=== PATIENT | male | born 1970 | race Caucasian/White ===

== ENCOUNTER 2020-04-09 18:10 | Emergency (ER) | payer OTHER, SELFPAY ==
--- NOTE | ~2020-04-09 | CT_ITS ---
EXAMINATION: CT abdomen pelvis wo con DATE: 04/09/2020 19:32 INDICATION: Right flank, low back pain TECHNIQUE: Computed tomography (CT) of the abdomen and pelvis was performed without intravenous contr ast. Automated exposure control and iterative reconstruction technique were employed. Exam dose: 716 .27 mGy-cm total exam DLP. COMPARISON: 07/29/[address] abdomen pelvis FINDINGS: Normal heart size. No pericardial or pleural effusion. The lung bases are clear. The liver, gallbladder, bile ducts, spleen, pancreas, pancreatic duct are unremarkable. The adrenal g lands are unremarkable. No urinary tract calculus or hydroureteronephrosis. Probable lower pole approximate 1.2 mm parapelvic right renal cyst. Probable upper pole left renal 9 mm parapelvic cyst. No other renal mass lesion is evident on this limited noncontrast examination. There is minimal abdominal aortic calcification. No abdominal aortic aneurysm. No intraperitoneal or retroperitoneal or pelvic mass lesion or adenopathy or ascites. Normal appendix. No bowel obstruction, bowel wall thickening, pneumatosis, diverticulitis or intraper itoneal free air. Mild prominence of the prostate gland. The urinary bladder is unremarkable. Small fat-containing umbilical hernia. No suspicious osteolytic or osteoblastic lesions. IMPRESSION: No urinary tract calculus or hydroureteronephrosis Probable parapelvic renal cysts Reviewed, dictated and finalized at [facility]. Reviewed, dictated and finalized at location [facility]. APPLICATIONS ADMINISTRATOR
[2020-04-09 18:20] VITALS: BP 131/84; PULSE 103; RESP 16; TEMP 36.2; O2SAT 99
[2020-04-09 19:22] LABS: Basophils Absolute Auto 0.1 K/mm3 (0.0-0.1); Basophils Percent Auto 0.5 % (0.2-1.2); Eosinophils Absolute Auto 0.2 K/mm3 (0-0.3); Eosinophils Percent Auto 1.8 % (0-4.4); Hemoglobin 15.8 g/dL (14.0-18.0); Immature Granulocyte Absolute 0.06 K/mm3 (0.00-0.031); Immature Granulocyte Percent A 0.5 % (0-0.5); Lymphocytes Absolute Auto 3.62 K/mm3 (0.9-3.2); Lymphocytes Percent Auto 27.2 % (18.3-44.2); Mean Corpuscular HGB Conc 34.3 g/dl (32-36); Mean Corpuscular Hemoglobin 32.3 pg (26-34); Mean Corpuscular Volume 94.1 fl (80-100); Mean Platelet Volume 11.8 fl (7.4-10.4); Monocytes Absolute Auto 1.2 K/mm3 (0.1-0.6); Monocytes Percent Auto 9.2 % (2.6-8.5); Neutrophils Absolute Auto 8.1 K/mm3 (1.3-6.7); Neutrophils Percent Auto 60.8 % (45.5-73.1); Platelet Count Result 205 k/mm3 (150-375); Red Blood Count 4.89 M/mm3 (4.6-6.20); Red Cell Distribution Width 12.4 % (11.5-14.5); White Blood Count 13.3 K/mm3 (4.5-10.0)
[2020-04-09 19:25] LABS: Add Urine Microscopic? YES; Appearance Urine Clear (Clear); Bilirubin Urine Negative (Negative); Blood Urine 2+ (Negative); Color Urine Straw (Yellow); Glucose Urine UA Negative (Negative); Ketones Urine Negative (Negative); Leukocyte Esterase Ur Negative LEU/UL (Negative); Nitrate Urine Negative (Negative); Protein Urine 1+ mg/dL (Negative); RBC Urine 0-2 /hpf (0-2); Specific Grav Ur 1.005 (1.001-1.035); Urobilinogen Urine Negative mg/dL (<2.0); WBC Urine 0-3 /hpf
[2020-04-09 19:33] LABS: Anion Gap 8 mmol/L (8-16); Blood Urea Nitrogen 8 mg/dL (9-20); Calcium 8.7 mg/dL (8.4-10.2); Carbon Dioxide 25 mmol/L (22-30); Chloride 100 mmol/L (98-107); Estimated CRCL calculation 119 ml/min; Estimated Glomerular Filt Rate > 60; Glucose 101 mg/dL (75-110); Potassium 4.4 mmol/L (3.4-5.0); Sodium 133 mmol/L (137-145)
[2020-04-09] MEDS: KETOROLAC 30 MG/ML VIAL (*BKC) IV PUSH (19:56)
[2020-04-09] MEDS: methocarbamoL 750 MG TABLET PO (20:29)
--- NOTE | 2020-04-09 20:45 | ED.BACK ---
HPI - Back Pain/Injury General Chief Complaint: Back Pain/Injury Stated Complaint: flank pain Time Seen by Provider: 04/09/20 18:43 Source: patient Mode of arrival: ambulatory Limitations: no limitations History of Present Illness HPI Narrative: 49-year-old male Complains of acute onset sudden sharp severe right low back and flank pain while he was watching TV Has not radiated, but has not improved very much either He had trouble finding a comfortable position and was nauseated but did not vomit He denies any urinary symptoms He denies any history of a back injury or prior back problem, has no numbness or weakness or pain radiating into his leg Related Data Home Medications Medication Instructions Recorded Confirmed [id number]-[id number]-mstbus tablet 1 tablet PO DAILY 10/12/19 10/12/19 Allergies Allergy/AdvReac Type Severity Reaction Status Date / Time bee pollen Allergy Severe Other Verified 04/09/20 18:46 Penicillins Allergy Unknown HIVES Verified 04/09/20 18:46 Review of Systems Review of Systems: All systems reviewed & are unremarkable except as noted in HPI and below Constitutional: Constitutional: Denies chills, Denies fatigue, Denies fever(s), Denies headache(s) and Denies weakness Eyes: Eyes: Reports no additional eye complaints and Denies change in vision ENT: Denies headache(s), Denies epistaxis, Denies nasal congestion and Denies sore throat Cardiovascular: Cardiovascular: Denies chest pain, Denies leg edema, Denies palpitations and Denies dyspnea Respiratory: Respiratory: Denies cough, Denies dyspnea and Denies wheezing Gastrointestinal: Gastrointestinal: Reports abdominal pain, Denies diarrhea, Denies nausea and Denies vomiting Genitourinary: Genitourinary: Denies hematuria, Denies dysuria and Denies urinary frequency Musculoskeletal: Musculoskeletal: Reports back pain, Denies deformity, Denies arthralgias, Denies joint swelling, Denies muscle weakness and Denies numbness Integumentary/Breasts: Skin/Breast: Denies rash and Denies wounds Neurologic: Denies headache(s), Denies focal weakness, Denies numbness and Denies weakness Psychiatric: Psychiatric: Reports no additional psychiatric complaints Endocrine: Endocrine: Denies fatigue and Denies palpitations Hematologic/Lymphatic: Hematologic/Lymphatic: Denies easy bleeding and Denies easy bruising Allergic/Immunologic: Allergic/Immunologic: Denies wheezing PMFSH Family History Family History Mother Family history of transient ischemic attacks Sibling Family history of malignant neoplasm Social History Social History Smoking status: Current every day smoker (Smoke 3/4 ppd) Alcohol intake: current Exam Const: General: well developed and awake Nutritional Appearance: well nourished Orientation/consciousness: patient oriented x3 (alert) Limitations: no limitations Other: Mild distress secondary to discomfort HENMT: Head: normocephalic and atraumatic Ears: external ears normal General nose exam: No nasal discharge present and no epistaxis Face and sinus: face symmetric Eyes: Conjunctivae: conjunctivae normal Sclera: sclerae normal EOM: EOMs intact bilaterally Neck: Neck: normal visual inspection, supple and no JVD Chest: Chest palpation & inspection: deferred Resp: Effort & Inspection: normal respiratory effort Auscultation: clear to auscultation bilaterally, no rales, no rhonchi, no wheezes and other (BS =) Cardio: Rate: regular rate Rhythm: regular rhythm Heart sounds: no gallops and no murmurs GI: Inspection: normal to inspection and non-distended GI Palp: Yes Soft to palpation and No Tenderness to palpation present (GI) Other: Mildly tender on the right flank, no guarding no rebound : General: Yes CVA tenderness Other: Questionable CVA tenderness on the right side none on the left side B
[2020-04-09 21:06] LABS: Alanine Aminotransferase 21 U/L (4-50); Albumin Level 4.2 g/dL (3.5-5.1); Alkaline Phosphatase 46 U/L (38-126); Aspartate Amino Transferase 39 U/L (17-59); Bilirubin,Total 0.5 mg/dL (0.2-1.3); Lipase 264 U/L (23-300)
== END 2020-04-09 21:26 | disposition home or self-care (01) ==
PROVIDERS: Emergency Provider Emergency Medicine; Family Provider Internal Medicine; PCP Family Medicine
DX: M54.16 Radiculopathy, lumbar region (principal); F17.210 Nicotine dependence, cigarettes, uncomplicated
CPT/HCPCS: 36415; 74176; 80048; 80076; 81001; 83690; 85025; 96374; 99284; A9270; J1885

== ENCOUNTER 2020-04-27 02:03 | Emergency (ER) | payer OTHER, SELFPAY ==
[2020-04-27 02:05] VITALS: BP 133/88; PULSE 72; RESP 18; TEMP 36.1; O2SAT 100
--- NOTE | 2020-04-27 02:15 | ED_ITS ---
HPI - General Adult General Chief complaint: Animal Bite Stated complaint: right hand lac from dogbite Time Seen by Provider: 04/27/20 02:11 History of Present Illness HPI narrative: Patient is a 49-year-old gentleman who presents the emergency department with chief complaint of dog bite to right hand. Patient states that his pet dog bit him on the right hand after the dog got upset. Is a known animal vaccinated patient is unsure of his last tetanus shot. Patient states the bleeding is controlled states he trimmed some fat out of the wound on the dorsum of the right forearm. Patient states there is a cut on the dorsal aspect of the right forearm just superior to the wrist and there is a puncture wound in the webspace between the ring and little finger. Related Data Home Medications Medication Instructions Recorded Confirmed No Home Medications 04/27/20 04/27/20 Allergies Allergy/AdvReac Type Severity Reaction Status Date / Time bee pollen Allergy Severe Other Verified 04/09/20 18:46 Penicillins Allergy Unknown HIVES Verified 04/09/20 18:46 Review of Systems Review of Systems: Narrative: A 10 system review of systems was completed on the patient and is negative except for what is stated in the HPI. Nursing and ancillary documentation was reviewed. [facility] Family History Family History Mother Family history of transient ischemic attacks Sibling Family history of malignant neoplasm Social History Social History Smoking status: Current every day smoker (Smoke 3/4 ppd) Alcohol intake: current Comments Patient has history of anxiety and PTSD Exam Narrative: Exam Narrative: GENERAL: Well-appearing, well-nourished, and in no acute distress. HEAD: Normocephalic, atraumatic. EYES: PERRLA and EOMI. ENT: Nares clear, no rhinorrhea or epistaxis. Mucous membranes moist. NECK: Supple. CHEST: Clear to auscultation. No respiratory distress. HEART: Regular rate and rhythm. No murmur heard. Normal peripheral pulses. ABDOMEN: Soft, nontender, nondistended, normal active bowel sounds. EXTREMITIES: Normal range of motion. No edema. There is a 3 cm laceration to the dorsum of the right forearm, there is 1/2 cm puncture wound between the ring and little finger of the right hand SKIN: Warm, dry, no rash. NEURO: No focal deficits. Alert and oriented x3. PSYCH: Normal mood and affect. Course Course Emergency Course: Given that this is an animal bite it was discussed with the patient the risk of closure increases the risk of infection. The wound will be Steri-Stripped and the patient will be given clindamycin and a updated tetanus shot will be given to the patient. Discharge Plan Discharge Clinical Impression: Dog bite Qualifiers: Encounter type: initial encounter Qualified Code(s): W54.0XXA - Bitten by dog, initial encounter Patient Disposition: Home, Self-Care Condition: Stable Instructions: Antibiotic Form, Animal Bite (ED), Steristrips (ED) Prescriptions: New doxycycline hyclate 100 mg tablet 100 mg PO DAILY Qty: 14 RF: 0 No Action No Home Medications RF: 0 Follow-up/Referrals: Yael Odonnell DO [Primary Care Provider] - Time of Disposition: 02:21
[2020-04-27] MEDS: TETANUS,DIPHTHERIA,AC PERTUSSIS ADULT (0.5 ML) BOOSTRIX IM (02:32)
[2020-04-27] MEDS: DOXYCYCLINE HYCLATE 100 MG TABLET PO (02:34)
== END 2020-04-27 02:45 | disposition home or self-care (01) ==
LOC: ANHED 02:38
PROVIDERS: Emergency Provider Emergency Medicine; PCP Family Medicine
DX: S61.451A Open bite of right hand, initial encounter (principal); Z23 Encounter for immunization; F17.210 Nicotine dependence, cigarettes, uncomplicated; W54.0XXA Bitten by dog, initial encounter
CPT/HCPCS: 90471; 90715; 99283; A9270

== ENCOUNTER 2020-09-08 23:59 | Emergency (ER) | payer OTHER, SELFPAY ==
--- NOTE | ~2020-09-08 | CT_ITS ---
EXAMINATION: CT cervical spine wo con DATE: 09/09/2020 00:56 INDICATION: Neck pain. TECHNIQUE: Computed tomography (CT) of the cervical spine was performed without intravenous contrast. Automated exposure control and iterative reconstruction technique were employed. The dose-length pro duct was 443.05 mGy-cm. COMPARISON: None FINDINGS: Bone alignment is normal. Vertebral body heights are normal. There is mildly decreased disc height at C5-C6. The following disc levels are specifically discussed: C2-C3: There is mild bilateral uncovertebral joint osteoarthritis. There is moderate bilateral facet joint osteoarthritis. There is no neural foraminal stenosis. There is no central canal stenosis. C3-C4: There is mild bilateral uncovertebral joint osteoarthritis. There is moderate right and severe left facet joint osteoarthritis. There is moderate left neural foraminal stenosis. There is no centr al canal stenosis. C4-C5: There is mild right uncovertebral joint osteoarthritis. There is mild right and severe left fa cet joint osteoarthritis. There is mild left neural foraminal stenosis. There is no central canal waylon nosis. C5-C6: There is severe right and mild left uncovertebral joint osteoarthritis. There is mild bilatera l facet joint osteoarthritis. There is mild right neural foraminal stenosis. There is mild central ca nal stenosis. C6-C7: There is no uncovertebral joint osteoarthritis. There is moderate left facet joint osteoarthri tis. There is no neural foraminal stenosis. There is no central canal stenosis. C7-T1: There is no uncovertebral joint osteoarthritis. There is severe bilateral facet joint osteoart hritis. There is no neural foraminal stenosis. There is no central canal stenosis. IMPRESSION: 1. Mild cervical spondylosis. Reviewed, dictated and finalized at location [facility].
--- NOTE | ~2020-09-08 | XR_ITS ---
EXAMINATION: XR chest 2V DATE: 09/09/2020 00:26 INDICATION: Right-sided chest pain. TECHNIQUE: PA and lateral views of the chest were obtained. COMPARISON: Chest radiograph dated 01/01/2019 FINDINGS: The lungs remain clear with no focal airspace opacities, pulmonary edema, pleural effusion or pneumot horax. The cardiomediastinal silhouette is normal. Visualized bones and soft tissues are unremarkable . IMPRESSION: 1. No acute cardiopulmonary disease. Reviewed, dictated and finalized at location [facility].
[2020-09-09] VITALS (10 sets, daily range): BP systolic 111–131; BP diastolic 71–88; PULSE 78–94; RESP 13–22; O2SAT 95–99
--- NOTE | 2020-09-09 00:03 | ECG_ITS ---
Measurements Intervals [place] Rate: 78 P: 52 [place]: 168 QRS: 53 QRSD: 93 T: 63 QT: 358 QTc: 408 Interpretive Statements SINUS RHYTHM BASELINE ARTIFACT- I, II, III, AVR, AVF, V1-V6 NORMAL ECG Electronically Signed On 09-09-2020 7:57:31 CDT by Ke Mae D.O.
[2020-09-09 00:23] LABS: Basophils Absolute Auto 0.1 K/mm3 (0.0-0.1); Basophils Percent Auto 0.5 % (0.2-1.2); Eosinophils Absolute Auto 0.2 K/mm3 (0-0.3); Eosinophils Percent Auto 1.9 % (0-4.4); Hematocrit 44.3 % (42.0-52.0); Hemoglobin 15.2 g/dL (14.0-18.0); Immature Granulocyte Absolute 0.03 K/mm3 (0.00-0.031); Immature Granulocyte Percent A 0.3 % (0-0.5); Lymphocytes Absolute Auto 4.67 K/mm3 (0.9-3.2); Lymphocytes Percent Auto 45.3 % (18.3-44.2); Mean Corpuscular HGB Conc 34.3 g/dl (32-36); Mean Corpuscular Hemoglobin 30.6 pg (26-34); Mean Corpuscular Volume 89.3 fl (80-100); Mean Platelet Volume 11.3 fl (7.4-10.4); Monocytes Percent Auto 9.9 % (2.6-8.5); Neutrophils Absolute Auto 4.4 K/mm3 (1.3-6.7); Neutrophils Percent Auto 42.1 % (45.5-73.1); Platelet Count Result 224 k/mm3 (150-375); Red Blood Count 4.96 M/mm3 (4.6-6.20); Red Cell Distribution Width 13.2 % (11.5-14.5); White Blood Count 10.3 K/mm3 (4.5-10.0)
--- NOTE | 2020-09-09 00:24 | ED.CHESTPAIN ---
HPI - Chest Pain General Chief Complaint: Chest Pain Stated Complaint: chest pain, right arm pain Time Seen by Provider: 09/09/20 00:13 History of Present Illness HPI narrative: Pain in the right side of the neck radiating throughout the right arm and hand. Feels like his hand is asleep. Improves somewhat with shaking his hand. Neck feels stiff and pain worsens with head turning. He has never had this before. He has chronic back issues. Related Data Allergies Allergy/AdvReac Type Severity Reaction Status Date / Time bee pollen Allergy Severe Other Verified 09/09/20 00:07 Penicillins Allergy Unknown HIVES Verified 09/09/20 00:07 Review of Systems Review of Systems: All systems reviewed & are unremarkable except as noted in HPI and below Constitutional: Constitutional: Denies chills and Denies fever(s) ENT: Reports system reviewed and no additional complaints, except as documented Cardiovascular: Cardiovascular: Reports as per HPI Respiratory: Respiratory: Denies dyspnea Gastrointestinal: Gastrointestinal: Reports no additional gastrointestinal complaints Neurologic: Reports as per HPI [facility] Family History Family History Mother Family history of transient ischemic attacks Sibling Family history of malignant neoplasm Social History Social History Tobacco type: cigarettes Alcohol intake: current Gender identity (if verbalized by the patient): Male Exam Const: General: no acute distress and alert Orientation/consciousness: patient oriented x3 HENMT: Head: normal to inspection Neck: Neck: normal visual inspection and no lymphadenopathy Chest: Chest palpation & inspection: tenderness clavicle on the right Resp: Effort & Inspection: normal respiratory effort Auscultation: clear to auscultation bilaterally Cardio: Rate: regular rate Rhythm: regular rhythm GI: GI Palp: Yes Soft to palpation and No Tenderness to palpation present (GI) Back/Spine/Pelvis: Other: tenderness and increased tone in right paraspinal muscles Skin: General skin exam: normal color Neuro: General: patient oriented x3, moves all extremities, no focal motor deficits and CN's II-XI intact bilaterally Speech: normal speech Other: normal strength Extrem: General: normal to inspection Course Vital Signs Vital signs: Vital Signs Pulse Rate 84 09/09/20 00:03 Respiratory Rate 22 H 09/09/20 00:03 Blood Pressure 131/83 06/28/21 00:03 Pulse Oximetry 95 09/09/20 00:03 Pulse Rate 89 09/09/20 02:45 Respiratory Rate 18 09/09/20 02:45 Blood Pressure 119/88 09/09/20 02:45 Pulse Oximetry 98 09/09/20 02:45 MDM - Chest Pain MDM Narrative Medical decision making narrative: Pain seems to orianginate from the neck. Likely pinch nerve. Medical Records Data Attestation: I reviewed the patient's medical records. Lab Data Attestation: I reviewed the patient's lab results. Result diagrams: 09/09/20 00:13 09/09/20 00:13 Labs: Lab Results 09/09/20 09/09/20 09/09/20 Range/Units 00:13 00:13 00:13 WBC 10.3 H (4.5-10.0) K/mm3 RBC 4.96 (4.6-6.20) M/mm3 Hgb 15.2 (14.0-18.0) g/dL Hct 44.3 (42.0-52.0) % MCV 89.3 (80-100) fl MCH 30.6 (26-34) pg MCHC 34.3 (32-36) g/dl RDW 13.2 (11.5-14.5) % Plt Count 224 (150-375) k/mm3 MPV 11.3 H (7.4-10.4) fl Immature Gran % (Auto) 0.3 (0-0.5) % Neut % (Auto) 42.1 L (45.5-73.1) % Lymph % (Auto) 45.3 H (18.3-44.2) % [place] % (Auto) 9.9 H (2.6-8.5) % Eos % (Auto) 1.9 (0-4.4) % Baso % (Auto) 0.5 (0.2-1.2) % Lymph # (Auto) 4.67 H (0.9-3.2) K/mm3 [place] # (Auto) 1.0 H (0.1-0.6) K/mm3 Eos # (Auto) 0.2 (0-0.3) K/mm3 Baso # (Auto) 0.1 (0.0-0.1) K/mm3 Abs Immat Gran (auto) 0.03 (0.00-0.031) K/mm3 Absolute Neuts (auto) 4.4 (1.3-6.7) K/m
[2020-09-09 00:31] LABS: INR 0.9; Prothrombin Time 12.8 Seconds (11.1-14.7)
[2020-09-09 00:32] LABS: Partial Thromboplastin Time 26.1 SECONDS (22.3-36.8)
[2020-09-09 00:37] LABS: Anion Gap 15 mmol/L (8-16); Blood Urea Nitrogen 6 mg/dL (9-20); Calcium 9.4 mg/dL (8.4-10.2); Carbon Dioxide 22 mmol/L (22-30); Chloride 100 mmol/L (98-107); Estimated CRCL calculation 101 ml/min; Estimated Glomerular Filt Rate > 60; Glucose 85 mg/dL (75-110); Potassium 4.1 mmol/L (3.4-5.0); Sodium 137 mmol/L (137-145)
[2020-09-09] MEDS: ASPIRIN 81 MG CHEWABLE TABLET 324 MG PO (00:46)
[2020-09-09 00:49] LABS: Troponin I < 0.012 ng/mL (0.000-0.034)
[2020-09-09] MEDS: DEXAMETHASONE SOD PHOS INJ 4 MG/ML VIAL 10 MG IV PUSH (02:45)
== END 2020-09-09 02:46 | disposition home or self-care (01) ==
PROVIDERS: Emergency Provider Emergency Medicine; PCP Family Medicine
DX: M54.12 Radiculopathy, cervical region (principal); F17.210 Nicotine dependence, cigarettes, uncomplicated; M79.601 Pain in right arm
CPT/HCPCS: 36415; 71046; 72125; 80048; 84484; 85025; 85610; 85730; 93005; 96374; 99284; A9270; J1100

== ENCOUNTER 2020-11-12 01:40 | Emergency (ER) | payer OTHER, SELFPAY ==
[2020-11-12 01:48] VITALS: BP 126/88; PULSE 94; RESP 20; TEMP 36.3; O2SAT 97
--- NOTE | 2020-11-12 02:25 | ED.SKABFB ---
HPI - Skin/Abscess/Foreign Bdy General Chief complaint: Skin/Abscess/Foreign Body Stated complaint: possible spider bite Time Seen by Provider: 11/12/20 02:13 History of Present Illness HPI narrative: Patient is a 50-year-old male who presents ER with redness to the right elbow medially. Noticed it 1 hour prior to arrival. It is itchy and uncomfortable. Unsure if he was bit by a spider. Did not actually see himself get bitten by any insects. No fevers or chills or sweats. There is redness that starting to extend up the arm. Related Data Allergies Allergy/AdvReac Type Severity Reaction Status Date / Time bee pollen Allergy Severe Other Verified 09/09/20 00:07 Penicillins Allergy Unknown HIVES Verified 09/09/20 00:07 Review of Systems Constitutional: Constitutional: Denies chills, Denies fever(s) and Denies weakness Integumentary/Breasts: Skin/Breast: Reports pruritus, Reports erythema and Denies skin ulcer Neurologic: Denies focal weakness and Reports numbness (Chronic right hand) PMFSH Past Medical History Medical History (Updated 11/12/20 @ 02:30 by Umang Wyman MD) Anxiety PTSD (post-traumatic stress disorder) Surgical History Surgical History (Updated 11/12/20 @ 02:30 by Umang Wyman MD) No pertinent past surgical history Family History Family History Mother Family history of transient ischemic attacks Sibling Family history of malignant neoplasm Social History Social History Tobacco type: cigarettes Alcohol intake: current Gender identity (if verbalized by the patient): Male Exam Narrative: GENERAL: Well-appearing, well-nourished, and in no acute distress. HEAD: Normocephalic, atraumatic. CHEST: Clear to auscultation. No respiratory distress. HEART: Regular rate and rhythm. Normal peripheral pulses. EXTREMITIES: Normal range of motion. No edema. SKIN: Warm, dry, cellulitis medial right elbow with central nodule w/o fluctuance. NEURO: Alert and oriented x3. PSYCH: Normal mood and affect. Course Vital Signs Vital signs: Vital Signs Temperature 97.3 F L 11/12/20 01:48 Pulse Rate 94 11/12/20 01:48 Respiratory Rate 20 11/12/20 01:48 Blood Pressure 126/88 11/12/20 01:48 Pulse Oximetry 97 11/12/20 01:48 Temperature 97.3 F L 11/12/20 01:48 Pulse Rate 94 11/12/20 01:48 Respiratory Rate 20 11/12/20 01:48 Blood Pressure 126/88 11/12/20 01:48 Pulse Oximetry 97 11/12/20 01:48 Discharge Plan Discharge Clinical Impression: Cellulitis Patient Disposition: Home, Self-Care Condition: Stable Instructions: Antibiotic Form Additional Instructions: Return to the ER if you have fever over 101F, you cannot use your arm, you have pus draining from the area, or you have other concerns. Prescriptions: New doxycycline monohydrate 100 mg tablet 100 mg PO BID Qty: 14 RF: 0 No Action doxycycline hyclate 100 mg tablet 100 mg PO DAILY Qty: 14 RF: 0 methylprednisolone [Medrol (Fox)] 4 mg tablets,dose pack See Rx Instructions .ROUTE .COMPLEX Qty: 21 RF: 0 cyclobenzaprine 10 mg tablet 10 mg PO TID PRN (Reason: muscle spasm) Qty: 20 RF: 0 Follow-up/Referrals: Yael Odonnell DO [Primary Care Provider] - 1 Week
== END 2020-11-12 02:40 | disposition home or self-care (01) ==
LOC: ANHED 02:42
PROVIDERS: Emergency Provider Emergency Medicine; PCP Family Medicine
DX: L03.113 Cellulitis of right upper limb (principal); F41.9 Anxiety disorder, unspecified; F43.10 Post-traumatic stress disorder, unspecified; F17.210 Nicotine dependence, cigarettes, uncomplicated
CPT/HCPCS: 99283

== ENCOUNTER 2021-09-23 00:13 | Day surgery (SDC) | payer OTHER, SELFPAY ==
[2021-09-03 09:14] VITALS: BMI 28.5
--- NOTE | 2021-09-22 13:14 | P.PNAN_ITS ---
Anes - Initial Pre Proc Eval Procedure: Operation Date: 09/23/21 09:15 Proposed Procedures p Screening Colonoscopy - Carloz Jorgensen MD Date/Time: 09/22/21 13:14 Surgeon: Carloz Jorgensen MD Pre Op Diagnosis: neoplasm screening Patient Data Age: 51 Gender: M Height: 1.83 m Weight: 95.4 kg Allergies Allergy/AdvReac Type Severity Reaction Status Date / Time bee pollen Allergy Severe Other Verified 09/23/21 08:00 Penicillins Allergy Unknown HIVES Verified 09/23/21 08:00 Home Medications Medication Instructions Recorded Confirmed Type hydroxyzine HCl 25 mg tablet 25 mg PO TID PRN Anxiety 07/04/21 09/03/21 History sertraline 50 mg tablet (Zoloft) 50 mg PO DAILY #30 tabs 07/04/21 09/03/21 Rx sodium sul 1.479 gram-potas ch See Rx Instructions PO PER PKG DIR 07/23/21 09/03/21 Rx 0.188 gram-magnes sul 0.225 gram #24 tabs tablet (Sutab) Patient hx anesthesia problems: none Family hx anesthesia problems: none Results Review: All pre-operative results and documents have been reviewed as part of the pre- operative evaluation. [facility] Past Medical History Medical History (Updated 09/22/21 @ 13:14 by Efrain Willoughby MD) Anxiety Hematuria Hyperlipemia Nicotine dependence PTSD (post-traumatic stress disorder) Surgical History Surgical History No pertinent past surgical history Family History Family History Mother Family history of transient ischemic attacks Sibling Family history of malignant neoplasm Social History Social History (Updated 07/04/21 @ 13:49 by TIARA Stuart) Smoking packs per day: 0.75 Smoking cigarettes per day: 15.0 Years smoked: 38 Smoking pack-years: 28.50 Smoking status: Current every day smoker Tobacco type: cigarettes Smokeless tobacco user: chewing tobacco Alcohol intake: current Drinks per week: 30 Substance use: never Substance use type: does not use Living arrangements: with friend(s) Additional living arrangements comments: lives with fiance Gender identity (if verbalized by the patient): Male Spiritual care concerns: No Anes - Eval Final PreProcedure Day of Procedure 09/22/21 13:14 Patient weight: overweight Heart: regular rate and rhythm Lungs: clear to auscultation and normal air movement Airway: Mallampati scale class II Neurological: alert and oriented Last oral intake: >/= 8 hours ASA classification: II Emergent: no Anesthetic plan: proceed Anesthesia type and monitoring: general GIVS Results Review: All pre-operative results and documents have been reviewed as part of the pre- operative evaluation. Informed Consent: The patient's anesthetic plan and its attendant risks and benefits were discussed with the patient/family/POA. Questions were solicited and answers provided to the satisfaction of the patient/family/POA.
[2021-09-23 08:01] VITALS: BP 125/80; PULSE 64; RESP 18; TEMP 36.2; O2SAT 100; BMI 27.3
[2021-09-23] MEDS: LACTATED RINGERS 1,000 ML 150 ML IV CONT (08:14)
--- NOTE | 2021-09-23 09:46 | PM.HPGS ---
History of Present Illness History of Present Illness Consent: Risks, benefits, and alternatives have been discussed and questions answered. Patient agrees to proceed with procedure. Chief complaint: neoplasm screening Narrative: Isaias Patel Sr. is a 51 year old male here for first screening colonoscopy Review of Systems Constitutional: Constitutional: Denies headache(s) and Denies weakness Eyes: Eyes: Denies blurry vision ENT: Reports Normal hearing present, Denies headache(s) and Denies neck pain Cardiovascular: Cardiovascular: Denies chest pain and Denies dyspnea Respiratory: Respiratory: Denies dyspnea Gastrointestinal: Gastrointestinal: Reports no additional gastrointestinal complaints Genitourinary: Genitourinary: Denies dysuria Musculoskeletal: Musculoskeletal: Denies neck pain Integumentary/Breasts: Skin/Breast: Denies dry skin Neurologic: Reports Normal hearing present, Denies headache(s) and Denies weakness Psychiatric: Psychiatric: Denies anxiety Endocrine: Endocrine: Denies change in body appearance Hematologic/Lymphatic: Hematologic/Lymphatic: Denies easy bleeding Allergic/Immunologic: Allergic/Immunologic: Denies urticaria PMFSH Past Medical History Medical History (Updated 09/23/21 @ 09:47 by Carloz Jorgensen MD) Anxiety Colon cancer screening Hematuria Hyperlipemia Nicotine dependence PTSD (post-traumatic stress disorder) Surgical History Surgical History No pertinent past surgical history Family History Family History Mother Family history of transient ischemic attacks Sibling Family history of malignant neoplasm Social History Social History (Updated 07/04/21 @ 13:49 by TIARA Stuart) Smoking packs per day: 0.75 Smoking cigarettes per day: 15.0 Years smoked: 38 Smoking pack-years: 28.50 Smoking status: Current every day smoker Tobacco type: cigarettes Smokeless tobacco user: chewing tobacco Alcohol intake: current Drinks per week: 30 Substance use: never Substance use type: does not use Living arrangements: with friend(s) Additional living arrangements comments: lives with fiance Gender identity (if verbalized by the patient): Male Spiritual care concerns: No Meds Home Medications and Allergies Home Medications Medication Instructions Recorded Confirmed Type hydroxyzine HCl 25 mg tablet 25 mg PO TID PRN Anxiety 07/04/21 09/03/21 History sertraline 50 mg tablet (Zoloft) 50 mg PO DAILY #30 tabs 07/04/21 09/03/21 Rx sodium sul 1.479 gram-potas ch See Rx Instructions PO PER PKG DIR 07/23/21 09/03/21 Rx 0.188 gram-magnes sul 0.225 gram #24 tabs tablet (Sutab) Allergies Allergy/AdvReac Type Severity Reaction Status Date / Time bee pollen Allergy Severe Other Verified 09/23/21 08:00 Penicillins Allergy Unknown HIVES Verified 09/23/21 08:00 Vital Signs Vital Signs - 24 hr 09/23/21 08:01 Temperature 97.1 F L Pulse Rate 64 Respiratory Rate 18 Blood Pressure 125/80 Pulse Oximetry 100 Oxygen Delivery Room Air Exam Const: General: comfortable and no acute distress HENMT: General nose exam: Normal nares present Eyes: General: appearance normal, both eyes and all related structures Neck: Neck: no JVD Resp: Auscultation: clear to auscultation bilaterally Cardio: Rate: regular rate Rhythm: regular rhythm GI: Inspection: non-distended GI Palp: Yes Soft to palpation Skin: General skin exam: normal color Neuro: General: gait normal Speech: normal speech Extrem: General: normal to inspection Psych: Mental Status: mental status grossly normal Assessment and Plan Assessment and plan (1) Colon cancer screening: Code(s): Z12.11 - Encounter for screening for malignant neoplasm of colon Status: Acute Assessment and Plan: colonoscopy
[2021-09-23 10:13] VITALS: BP 110/67; PULSE 68; RESP 15; O2SAT 100
[2021-09-23 10:23] VITALS: BP 130/80; PULSE 67; RESP 17; O2SAT 100
[2021-09-23 10:33] VITALS: BP 142/82; PULSE 63; RESP 20; O2SAT 100
== END 2021-09-23 10:38 | disposition home or self-care (01) ==
PROVIDERS: PCP Family Medicine; Visit Provider Internal Medicine Gastroenterology
PROC: 0DJD8ZZ Inspection of Lower Intestinal Tract, Via Natural or Artificial Opening Endoscopic (ICD-10-PCS; CPT 45378; principal; 2021-09-23 09:15)
DX: Z12.11 Encounter for screening for malignant neoplasm of colon (principal); D12.4 Benign neoplasm of descending colon; K64.8 Other hemorrhoids; F41.9 Anxiety disorder, unspecified; F43.10 Post-traumatic stress disorder, unspecified; F17.210 Nicotine dependence, cigarettes, uncomplicated; F17.220 Nicotine dependence, chewing tobacco, uncomplicated
CPT/HCPCS: 45385; 88305; J2704; J7120

== ENCOUNTER 2022-01-06 07:50 | Emergency (ER) | payer OTHER, SELFPAY ==
[2022-01-06] VITALS (31 sets, daily range): BP systolic 111–141; BP diastolic 73–93; PULSE 57–78; RESP 14–23; TEMP 36.4; O2SAT 93–99
--- NOTE | ~2022-01-06 | XR_ITS ---
[XR ribs LT 2V ] INDICATION: Status post fall. Trauma. TECHNIQUE: Frontal projection of the upper left ribs, frontal projection of the lower left ribs, obli que projection of all the left ribs, frontal inspiratory chest x-ray for interpretation. FINDINGS: There are acute displaced fifth, sixth and seventh rib fractures. There is mild thoracic sp ondylosis with dextrocurvature of the thoracic spine. There are no soft tissue abnormality seen. The lungs are clear. IMPRESSION: 1: Acute mildly displaced left fifth, sixth and seventh rib fractures. Reviewed, dictated and finalized at location B.
--- NOTE | ~2022-01-06 | CT_ITS ---
EXAMINATION: CT brain wo con DATE: 01/06/2022 09:31 INDICATION: Syncope. Fall. TECHNIQUE: Computed tomography (CT) of the head was performed without intravenous contrast. The mA wa s adjusted according to patient size. Iterative reconstruction technique was employed. The dose-lengt h product was 681.00 mGy-cm. COMPARISON: Head CT 05/09/2018 FINDINGS: There is no intracranial hemorrhage, acute infarction, or abnormal intracranial mass lesion . The ventricles are normal in size. The orbits are normal. The mastoid air cells are normal. There i s mucosal thickening and fluid in the paranasal sinuses. IMPRESSION: 1. Normal brain. Reviewed, dictated and finalized at location A. IMPRESSION: 1. Normal brain.
--- NOTE | 2022-01-06 08:22 | ECG_ITS ---
Measurements Intervals [place] Rate: 62 P: 61 [place]: 177 QRS: 20 QRSD: 94 T: 45 QT: 411 QTc: 418 Interpretive Statements SINUS RHYTHM COMPARED TO ECG 09/09/2020 00:07:19 NO SIGNIFICANT CHANGES Electronically Signed On 01-06-2022 16:14:12 CDT by Frederic Song M.D.
[2022-01-06 08:39] LABS: Basophils Percent Auto 0.4 % (0.2-1.2); Eosinophils Percent Auto 0.2 % (0-4.4); Hematocrit 43.2 % (42.0-52.0); Hemoglobin 14.6 g/dL (14.0-18.0); Immature Granulocyte Absolute 0.08 K/mm3 (0.00-0.031); Immature Granulocyte Percent A 0.7 % (0-0.5); Lymphocytes Absolute Auto 1.37 K/mm3 (0.9-3.2); Lymphocytes Percent Auto 12.1 % (18.3-44.2); Mean Corpuscular HGB Conc 33.8 g/dl (32-36); Mean Corpuscular Volume 94.7 fl (80-100); Mean Platelet Volume 10.6 fl (7.4-10.4); Monocytes Absolute Auto 1.2 K/mm3 (0.1-0.6); Monocytes Percent Auto 10.4 % (2.6-8.5); Neutrophils Absolute Auto 8.6 K/mm3 (1.3-6.7); Neutrophils Percent Auto 76.2 % (45.5-73.1); Platelet Count Result 225 k/mm3 (150-375); Red Blood Count 4.56 M/mm3 (4.6-6.20); Red Cell Distribution Width 13.6 % (11.5-14.5); White Blood Count 11.3 K/mm3 (4.5-10.0)
[2022-01-06 08:51] LABS: Alanine Aminotransferase 72 U/L (6-50); Albumin Level 4.5 g/dL (3.5-5.1); Alkaline Phosphatase 61 U/L (38-126); Anion Gap 9 mmol/L (8-16); Aspartate Amino Transferase 95 U/L (17-59); Bilirubin,Total 0.8 mg/dL (0.2-1.3); Blood Urea Nitrogen 7 mg/dL (9-20); Calcium 8.9 mg/dL (8.4-10.2); Carbon Dioxide 27 mmol/L (22-30); Chloride 102 mmol/L (98-107); Estimated CRCL calculation 134 ml/min; Estimated Glomerular Filt Rate > 60; Glucose 123 mg/dL (65-110); Sodium 138 mmol/L (137-145)
--- NOTE | 2022-01-06 10:05 | ED.SYNCOPE ---
HPI - Syncope General Chief Complaint: Syncope Stated Complaint: syncopal episode/rib injury Time Seen by Provider: 01/06/22 09:15 History of Present Illness HPI narrative: 51-year-old male no medical problems presents to the emergency room for injury sustained following a syncopal episode. Patient states that he was at work this morning became diaphoretic and experiencing couple episode. Patient states he remembers waking up while on the floor, with his coworkers asking him if he was okay. Patient states he noticed bleeding to his left elbow and pain to the left side of his chest. Patient denies chest pain, palpitations, shortness of breath, difficulty breathing, dizziness, lightheadedness or headache. Denies nausea or vomiting. Denies any recent URI symptoms. Related Data Home Medications Medication Instructions Recorded Confirmed hydroxyzine HCl 25 mg tablet 25 mg PO TID PRN Anxiety 07/04/21 09/03/21 Allergies Allergy/AdvReac Type Severity Reaction Status Date / Time bee pollen Allergy Severe Other Verified 09/23/21 08:00 Penicillins Allergy Unknown HIVES Verified 09/23/21 08:00 Review of Systems Review of Systems: CONSTITUTIONAL: Reports diaphoresis EYES: Denies visual changes, redness, or discharge. ENT: Denies rhinorrhea, congestion, sore throat, or otalgia. CARDIOVASCULAR: Denies chest pain, palpitations, or edema. RESPIRATORY: Denies cough or dyspnea. GASTROINTESTINAL: Denies abdominal pain, nausea, vomiting, or diarrhea. GENITOURINARY: Denies dysuria or hematuria. SKIN: Reports laceration to left elbow MUSCULOSKELETAL: Reports tenderness to left lateral chest wall NEUROLOGIC: Denies headache, numbness, dizziness, or weakness. PSYCHIATRIC: Denies anxiety or depression. [facility] Past Medical History Medical History Anxiety Colon cancer screening Hematuria Hyperlipemia Nicotine dependence PTSD (post-traumatic stress disorder) Surgical History Surgical History No pertinent past surgical history Family History Family History Mother Family history of transient ischemic attacks Sibling Family history of malignant neoplasm Social History Social History Smoking packs per day: 0.75 Smoking cigarettes per day: 15.0 Years smoked: 38 Smoking pack-years: 28.50 Smoking status: Current every day smoker Tobacco type: cigarettes Smokeless tobacco user: chewing tobacco Alcohol intake: current Drinks per week: 30 Substance use: never Substance use type: does not use Additional living arrangements comments: lives with fiance Gender identity (if verbalized by the patient): Male Spiritual care concerns: No Exam Narrative: GENERAL: Well-appearing, well-nourished, no physical limitations, and in obvious acute distress. HEAD: Normocephalic, atraumatic. EYES: Conjunctivae normal, PERRLA and EOMI. CHEST: Clear to auscultation. No respiratory distress. No wheezes rales or rhonchi. Tenderness to the left lower lateral chest wall HEART: Regular rate and rhythm. No murmur heard. Normal peripheral pulses. ABDOMEN: Soft, nontender, nondistended, normal active bowel sounds. BACK: No cervical/thoracic/lumbar tenderness, step-offs, bony abnormality; FROM EXTREMITIES: Normal range of motion. No edema. No clubbing or cyanosis SKIN: Warm, dry, no rash. Superficial 3cm laceration left elbow NEURO: No focal deficits. Alert and oriented x3. MAEW. CN's II-XI intact bilaterally, normal gait PSYCH: Cooperative. Normal mood and affect. Course Vital Signs Vital signs: Vital Signs Temperature 36.4 C 01/06/22 08:18 Pulse Rate 66 01/06/22 08:18 Respiratory Rate 18 01/06/22 08:18 Blood Pressure 141/80 H 01/06/22 08:18 Pulse Oximetry 97 01/06/22 08:18 Oxygen Delivery Ro
[2022-01-06] MEDS: HYDROmorphone HCL INJ (*CRX) 1 MG/ML SYR IV PUSH (10:17)
[2022-01-06] MEDS: SODIUM CHLORIDE 0.9% IV 1,000 ML 999 ML IV CONT (10:17)
--- NOTE | 2022-01-06 10:19 | PC.NURSE ---
troponin added at this time.
[2022-01-06 10:29] LABS: Add Urine Microscopic? YES; Appearance Urine Clear (Clear); Bacteria Urine Trace /hpf; Bilirubin Urine Negative (Negative); Blood Urine 2+ (Negative); Color Urine Yellow (Yellow); Glucose Urine UA Negative (Negative); Ketones Urine Trace mg/dL (Negative); Leukocyte Esterase Ur Negative LEU/UL (Negative); Mucus Urine Rare /lpf; Nitrate Urine Negative (Negative); Protein Urine 2+ mg/dL (Negative); RBC Urine 21-50 /hpf (0-2); Specific Grav Ur 1.012 (1.001-1.035); Urobilinogen Urine Negative mg/dL (<2.0); WBC Urine 0-3 /hpf
--- NOTE | 2022-01-06 10:29 | PC.NURSE ---
Per PAPER MACHINE TENDER Bebo, no orthostatic blood pressures needed.
[2022-01-06 10:42] LABS: Troponin I < 0.012 ng/mL (0.000-0.034)
[2022-01-06] MEDS: HYDROmorphone HCL INJ (*CRX) 1 MG/ML SYR 0.5 MG IV PUSH (11:03)
--- NOTE | 2022-01-06 11:19 | PC.NURSE ---
Patient report received from JOVI Cassidy. All questions answered and care of patient assumed. Patient resting quietly in stretcher with call-light in reach and family at bedside. VSS. Reports IV pain medication is working to decrease his pain level. Awaiting further orders and disposition.
[2022-01-06 12:17] LABS: Troponin I < 0.012 ng/mL (0.000-0.034)
[2022-01-06] MEDS: fentaNYL CITRATE INJ (*CRX) 100 MCG/2 ML VIAL 50 MCG IV PUSH (12:57)
== END 2022-01-06 13:44 | disposition home or self-care (01) ==
PROVIDERS: Emergency Medicine; Emergency Provider Nurse Practitioner Family; PCP Family Medicine
DX: R55 Syncope and collapse (principal); S22.42XA Multiple fractures of ribs, left side, initial encounter for closed fracture; S51.012A Laceration without foreign body of left elbow, initial encounter; E78.5 Hyperlipidemia, unspecified; F17.210 Nicotine dependence, cigarettes, uncomplicated; F17.220 Nicotine dependence, chewing tobacco, uncomplicated; W18.39XA Other fall on same level, initial encounter
CPT/HCPCS: 36415; 70450; 71100; 80053; 81001; 84484; 85025; 93005; 96361; 96374; 96375; 99284; J1170; J3010; J7030

== ENCOUNTER 2022-02-19 09:50 | Outpatient (CLI) | payer OTHER, SELFPAY ==
--- NOTE | ~2022-02-19 | CT_ITS ---
EXAMINATION: CT diagnostic chest wo con DATE: 02/19/2022 10:11 INDICATION: Displaced left fifth-seventh ribs fracture TECHNIQUE: Computed tomography (CT) of the chest was performed without intravenous contrast. The dose -length product was 220.49 mGy-cm. Automated exposure control and iterative reconstruction technique were employed. COMPARISON: Left rib series dated 01/06/2022 FINDINGS: Small left pleural effusion. Heart size normal. Left basilar atelectasis. Lingular atelecta sis. No thoracic lymphadenopathy. There are subacute fractures of the left third-ninth ribs. The thir d-eighth rib fractures are segmental with fractures laterally and posteriorly. No endobronchial lesio ns. No pneumothorax. Moderate thoracic spondylosis. There is a 4 mm left upper lobe nodule. IMPRESSION: 1. Subacute left third-eighth rib fractures. 2: Small left pleural effusion. 3: Lingular and left lower lobe atelectasis. 4: Left upper lobe nodule measuring 4 mm, likely benign. Recommend follow-up low dose CT chest in 12 months. Reviewed, dictated and finalized at location A. E BANDER IMPRESSION: 1. Subacute left third-eighth rib fractures. 2: Small left pleural effusion. 3: Lingular and left lower lobe atelectasis. 4: Left upper lobe nodule measuring 4 mm, likely benign. Recommend follow-up lo w dose CT chest in 12 months.
== END 2022-02-19 09:51 | disposition home or self-care (01) ==
PROVIDERS: PCP Family Medicine; Visit Provider Family Medicine
DX: S22.42XD Multiple fractures of ribs, left side, subsequent encounter for fracture with routine healing (principal); X58.XXXD Exposure to other specified factors, subsequent encounter; J90 Pleural effusion, not elsewhere classified
CPT/HCPCS: 71250

== ENCOUNTER 2022-03-13 09:43 | Outpatient (CLI) | payer OTHER, SELFPAY ==
--- NOTE | ~2022-03-13 | XR_ITS ---
Clinical Indication: Rib fracture, lung collapse PA and lateral views of the chest: Comparison: 01/06/2022 Findings: The lungs are clear, without evidence of focal consolidation or pleural effusion. Cardiome diastinal silhouette is within normal limits. There is a probable new fracture of the posterior left third rib. Subacute fractures of the left fifth, sixth, and seventh ribs are present. Additional frac ture of the eighth rib which appears subacute, not seen on prior exam. Impression: Probable new acute fracture of the posterior left third rib. Acute to subacute fracture of the posterior left eighth rib, not seen on prior exam. Subacute fractures of left fifth, sixth, seventh ribs, similar to prior exam. Clear lungs. Reviewed, dictated and finalized at location . N SPECIALIST Impression: Probable new acute fracture of the posterior left third rib. Acute to subacute fracture of the posterior left eighth rib, not seen on prior exam. Subacute fractures of left fifth, sixth, seventh ribs, similar to prior exam. Clear lungs.
== END 2022-03-13 09:44 | disposition home or self-care (01) ==
PROVIDERS: PCP Family Medicine; Visit Provider Nurse Practitioner
DX: S22.42XA Multiple fractures of ribs, left side, initial encounter for closed fracture (principal)
CPT/HCPCS: 71046

== ENCOUNTER 2022-04-10 11:08 | Outpatient (CLI) | payer BC, SELFPAY ==
--- NOTE | ~2022-04-10 | XR_ITS ---
Clinical Indication: Rib fractures PA and lateral views of the chest: Comparison: 03/13/2022 Findings: The lungs are clear, without evidence of focal consolidation or pleural effusion. Cardiome diastinal silhouette is within normal limits. Subacute fractures of the left third, fourth, fifth, si xth, seventh, and eighth ribs again noted.. Impression: Multiple left-sided rib fracture deformities, which correlate with those seen on prior exam. Clear lungs. Reviewed, dictated and finalized at location M. ICULTURE SUPERVISOR Impression: Multiple left-sided rib fracture deformities, which correlate with those seen o n prior exam. Clear lungs.
== END 2022-04-10 11:09 | disposition home or self-care (01) ==
LOC: ANHIMG 11:12
PROVIDERS: PCP Family Medicine; Visit Provider Nurse Practitioner
DX: S22.49XA Multiple fractures of ribs, unspecified side, initial encounter for closed fracture (principal); X58.XXXA Exposure to other specified factors, initial encounter
CPT/HCPCS: 71046

== ENCOUNTER 2022-04-23 09:03 | Outpatient (CLI) | payer BC, SELFPAY ==
--- NOTE | ~2022-04-23 | XR_ITS ---
Clinical Indication: Left rib fractures PA and lateral views of the chest: Comparison: 04/10/2022 Findings: The lungs are clear, without evidence of focal consolidation or pleural effusion. Cardiome diastinal silhouette is within normal limits. Multiple left rib fracture deformities are similar to p rior exam. Impression: Multiple left rib fracture deformities, probably without significant change from prior exam. Clear lungs. Reviewed, dictated and finalized at location M. BOAT OPERATOR Impression: Multiple left rib fracture deformities, probably without significant change fro prior exam. Clear lungs.
== END 2022-04-23 09:04 | disposition home or self-care (01) ==
PROVIDERS: PCP Family Medicine; Visit Provider Nurse Practitioner
DX: S22.42XA Multiple fractures of ribs, left side, initial encounter for closed fracture (principal); T14.90XA Injury, unspecified, initial encounter
CPT/HCPCS: 71046

== ENCOUNTER 2022-05-23 17:12 | Emergency (ER) | payer SELFPAY ==
[2022-05-23 17:14] VITALS: BP 141/92; PULSE 83; RESP 18; TEMP 36.3; O2SAT 98
--- NOTE | 2022-05-23 17:18 | ED.GENADULT ---
HPI - General Adult General Chief complaint: Unspecified <Cordell Lu PA-C - Last Filed: 05/23/22 18:08> Stated complaint: BLEEDING HEMORRHOID <Cordell Lu PA-C - Last Filed: 05/23/22 18:08> Time Seen by Provider: 05/23/22 17:16 <Cordell Lu PA-C - Last Filed: 05/23/22 18:08> History of Present Illness HPI narrative: This is a 51-year-old male presents to the ED with chief complaint of bleeding hemorrhoid x 1 day. He reports 1 year history of this hemorrhoid diagnosed on colonoscopy. He was told that he had 1 polyp in the external hemorrhoid on this colonoscopy. He is unsure when he is supposed to follow-up. He states that he had pneumonia recently and has been coughing a lot and feels that this is why the hemorrhoid started bleeding. He states that when he coughs or sneezes there is active bleeding that runs down the leg. He states that whenever he has a bowel movement there is blood on the toilet paper and some blood in the toilet. Reports bright red blood. He states that he is not having any pain whatsoever. Denies abdominal pain, nausea, vomiting. Bowel movements have been regular other than having a few loose stools. He has not tried any topical treatments or sitz bath or increase fiber. Otherwise asymptomatic. Denies fevers, chills, headache. <Cordell Lu PA-C - Last Filed: 05/23/22 18:08> Related Data Home medications: Home Medications Medication Instructions Recorded Confirmed acetaminophen 500 mg tablet 500 mg PO Q6H PRN 03/02/22 03/02/22 <MIKE Alvarenga Last Filed: 05/23/22 18:08> Allergies/adverse reactions: Allergies Allergy/AdvReac Type Severity Reaction Status Date / Time bee pollen Allergy Severe Other Verified 03/02/22 11:32 Penicillins Allergy Unknown HIVES Verified 03/02/22 11:32 <MIKE Alvarenga Last Filed: 05/23/22 18:08> Review of Systems Review of Systems: CONSTITUTIONAL: Denies fever, chills, or sweats. EYES: Denies visual changes, redness, or discharge. ENT: Denies rhinorrhea, congestion, sore throat, or otalgia. CARDIOVASCULAR: Denies chest pain, palpitations, or edema. RESPIRATORY: Denies cough or dyspnea. GASTROINTESTINAL: Endorses rectal bleeding. Denies rectal pain. Endorses loose stools. Denies abdominal pain, nausea, vomiting, or diarrhea. GENITOURINARY: Denies dysuria or hematuria. SKIN: Denies rash or itching. MUSCULOSKELETAL: Denies back pain, joint pain, or myalgia. NEUROLOGIC: Denies headache, numbness, dizziness, or weakness. PSYCHIATRIC: Denies anxiety or depression. <Cordell Lu PA-C - Last Filed: 05/23/22 18:08> [facility] Past Medical History Medical History: Medical History Anxiety Colon cancer screening Hematuria Hyperlipemia Nicotine dependence PTSD (post-traumatic stress disorder) <Cordell Lu PA-C - Last Filed: 05/23/22 18:08> Surgical History Surgical History: Surgical History No pertinent past surgical history <Cordell Lu PA-C - Last Filed: 05/23/22 18:08> Family History Family History: Family History Mother Family history of transient ischemic attacks Sibling Family history of malignant neoplasm <Cordell Lu PA-C - Last Filed: 05/23/22 18:08> Social History Social History: Social History Smoking packs per day: 0.75 Smoking cigarettes per day: 15.0 Years smoked: 38 Smoking pack-years: 28.50 Smoking status: Current every day smoker Tobacco type: cigarettes Smokeless tobacco user: chewing tobacco Alcohol intake: current Drinks per week: 30 Substance use: never Substance use type: does not use Lack of Transportation: No Lack of Food: Never True Current Housing: I Have Housing Concerned About Future Housing:
[2022-05-23 17:48] LABS: Basophils Absolute Auto 0.1 K/mm3 (0.0-0.1); Basophils Percent Auto 0.4 % (0.2-1.2); Eosinophils Absolute Auto 0.1 K/mm3 (0-0.3); Eosinophils Percent Auto 0.5 % (0-4.4); Hematocrit 40.4 % (42.0-52.0); Hemoglobin 13.7 g/dL (14.0-18.0); Immature Granulocyte Absolute 0.23 K/mm3 (0.00-0.031); Immature Granulocyte Percent A 1.3 % (0-0.5); Lymphocytes Percent Auto 26.9 % (18.3-44.2); Mean Corpuscular HGB Conc 33.9 g/dl (32-36); Mean Corpuscular Hemoglobin 31.4 pg (26-34); Mean Corpuscular Volume 92.7 fl (80-100); Mean Platelet Volume 9.8 fl (7.4-10.4); Monocytes Absolute Auto 1.6 K/mm3 (0.1-0.6); Monocytes Percent Auto 9.2 % (2.6-8.5); Neutrophils Absolute Auto 10.8 K/mm3 (1.3-6.7); Neutrophils Percent Auto 61.7 % (45.5-73.1); Platelet Count Result 365 k/mm3 (150-375); Red Blood Count 4.36 M/mm3 (4.6-6.20); Red Cell Distribution Width 12.2 % (11.5-14.5); White Blood Count 17.4 K/mm3 (4.5-10.0)
[2022-05-23 17:53] VITALS: RESP 18; O2SAT 99
[2022-05-23 17:59] LABS: Alanine Aminotransferase 24 U/L (6-50); Alkaline Phosphatase 64 U/L (38-126); Anion Gap 8 mmol/L (8-16); Aspartate Amino Transferase 32 U/L (17-59); Bilirubin,Total 0.5 mg/dL (0.2-1.3); Blood Urea Nitrogen 3 mg/dL (9-20); Calcium 8.4 mg/dL (8.4-10.2); Carbon Dioxide 25 mmol/L (22-30); Chloride 98 mmol/L (98-107); Estimated CRCL calculation 163 ml/min; Estimated Glomerular Filt Rate > 60; Glucose 105 mg/dL (65-110); Potassium 3.2 mmol/L (3.4-5.0); Sodium 131 mmol/L (137-145)
--- NOTE | 2022-05-23 18:11 | PC.NURSE ---
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
[2022-05-23 18:12] VITALS: BP 132/76; PULSE 87; RESP 18; O2SAT 99
== END 2022-05-23 18:14 | disposition home or self-care (01) ==
PROVIDERS: Emergency Provider Physician Assistant; PCP Family Medicine
DX: K64.9 Unspecified hemorrhoids (principal); F17.210 Nicotine dependence, cigarettes, uncomplicated; F41.9 Anxiety disorder, unspecified
CPT/HCPCS: 36415; 80053; 85025; 99283

== ENCOUNTER → 2022-11-30 15:54 | Outpatient (CLI) | payer BC, SELFPAY ==
--- NOTE | ~2022-11-30 | XR_ITS ---
EXAMINATION: XR knee LT 3V DATE: 11/30/2022 16:05 INDICATION: Left knee pain. TECHNIQUE: 3 views of left knee were obtained. COMPARISON: None. FINDINGS: Bone alignment is normal. No fracture. Joint spaces are normal. No knee joint effusion. IMPRESSION: 1. Normal left knee. Reviewed, dictated and finalized at location E. IMPRESSION: 1. Normal left knee.
--- NOTE | ~2022-11-30 | XR_ITS ---
EXAMINATION: XR hip LT min 2V DATE: 11/30/2022 16:05 INDICATION: Left hip pain. TECHNIQUE: 2 views of left hip were obtained. COMPARISON: None. FINDINGS: Bone alignment is normal. No fracture. There is mild left hip osteoarthritis. IMPRESSION: 1. Mild left hip osteoarthritis. Reviewed, dictated and finalized at location E.
== END ==
PROVIDERS: PCP Nurse Practitioner; Visit Provider Nurse Practitioner
DX: M25.562 Pain in left knee (principal); M16.12 Unilateral primary osteoarthritis, left hip
CPT/HCPCS: 73502; 73562

== ENCOUNTER → 2023-03-03 08:12 | Outpatient (CLI) | payer BC, SELFPAY ==
--- NOTE | ~2023-03-03 | CT_ITS ---
EXAMINATION: CT chest high resolution wo nv DATE: 03/03/2023 08:30 INDICATION: Lung nodule TECHNIQUE: Computed tomography (CT) of the chest was performed without intravenous contrast. The dose -length product (DLP) was 319.42 mGy-cm. Automated exposure control and iterative reconstruction tech nique were employed. COMPARISON: 02/19/2022 FINDINGS: The previously described 4 mm nodule of the left lower lobe is no longer identified. There is a 4 mm nodule of the right lower lobe on image 80. There is unchanged mild atelectasis of the ling axel. No pleural effusion or pneumothorax. No pathologically enlarged thoracic lymph nodes are identif ied. The heart size is normal. There are multiple healed left-sided rib fractures. There is nonunion of posterolateral left sixth and seventh rib fractures. There is moderate thoracic spondylosis. IMPRESSION: 1. Interval resolution of the previously described left lower lobe nodule. 2. New 4 mm nodule of the right lower lobe. If the patient has no risk factors for malignancy, no fur ther follow up is required. If there are risk factors for malignancy (i.e., history of smoking, asbe stos or radiation exposure), consider followup CT in 12 months. Reviewed, dictated and finalized at location B. SCAPE ARTIST IMPRESSION: 1. Interval resolution of the previously described left lower lobe nodule. 2. New 4 mm nodule of the right lower lobe. If the patient has no risk factors for malignancy, no further follow up is required. If there are risk factors fo r malignancy (i.e., history of smoking, asbestos or radiation exposure), consid er followup CT in 12 months.
== END ==
PROVIDERS: PCP Family Medicine; Visit Provider Family Medicine
DX: R91.1 Solitary pulmonary nodule (principal)
CPT/HCPCS: 71250

== ENCOUNTER 2024-01-06 15:27 | Outpatient (CLI) | payer BC, SELFPAY ==
--- NOTE | ~2024-01-06 | XR_ITS ---
EXAMINATION: XR shoulder RT min 2V DATE: 01/06/2024 15:40 INDICATION: Chronic bilateral shoulder pain TECHNIQUE: AP internally and externally rotated, AP oblique externally rotated and transscapular Y vi ews of the right shoulder were obtained. COMPARISON: None FINDINGS: Normal alignment. No fracture. Glenohumeral joint is normal. Mild right acromioclavicular osteoarthr itis. Visualized portion of the lungs are clear. Soft tissues are unremarkable. IMPRESSION: Mild right acromioclavicular osteoarthritis. Reviewed, dictated and finalized at location A.
--- NOTE | ~2024-01-06 | XR_ITS ---
HISTORY: chronic bilateral anterior shoulder pain COMPARISON: 07/27/2007 TECHNIQUE: 4 images of the left shoulder were performed FINDINGS: No acute fracture. Significant degenerative disease is identified within the acromioclavicular joint, with osteophyte fo rmation and joint space narrowing. The glenohumeral joint space is maintained The visualized portion of the adjacent left lung is clear. The humeral head is well seated within the glenoid fossa. IMPRESSION: No acute fracture or anterior dislocation. Severe degenerative disease within the acromioclavicular joint, as detailed above Reviewed, dictated and finalized at location A. IMPRESSION: No acute fracture or anterior dislocation. Severe degenerative disease within the acromioclavicular joint, as detailed abo ve
== END 2024-01-06 15:28 | disposition home or self-care (01) ==
LOC: GOSHIMG 15:28
PROVIDERS: PCP Family Medicine; Visit Provider Nurse Practitioner
DX: M19.011 Primary osteoarthritis, right shoulder (principal); M19.012 Primary osteoarthritis, left shoulder
CPT/HCPCS: 73030

== ENCOUNTER 2024-04-28 07:54 | Outpatient (CLI) | payer BC, SELFPAY ==
--- NOTE | ~2024-04-28 | XR_ITS ---
EXAMINATION:[id number] DATE: 04/28/2024 08:16 INDICATION: Cervicalgia with left shoulder pain TECHNIQUE: AP, lateral, lateral swimmers and odontoid views of the cervical spine are provided. COMPARISON: 01/29/2014 FINDINGS: Odontoid is intact. Normal atlantoaxial interval. 2 mm anterolisthesis C4 on C5 which is new since p rior study. Vertebral body heights are normal. Mild disc height loss at C4-C5 and moderate disc heigh t loss at C5-C6. Moderate associated uncovertebral osteoarthritis at these levels and small posterior endplate osteophytes at C5-C6 contributing to at least minimal central canal stenosis. Additional mi nimal central canal stenosis resulting from spondylolisthesis at C4-C5. Multilevel severe left-sided and moderate right-sided cervical facet osteoarthritis. Prevertebral soft tissues are normal. IMPRESSION: 1. Mild to moderate cervical spondylosis. Reviewed, dictated and finalized at location A. LIOLA MECHANIC
--- OUTSIDE RECORDS SUMMARY | 2024-04-28 07:58 | XMS_ITS | Clinical Summary ---
Author Organization [facility] [place] [address] Address [address] [place] [address] Care Team Providers Care Health Services Coordinator Name Role Phone Yael Odonnell DO Primary Care Provider [phone]- [phone] Allergies Active Allergy Reactions Criticality Noted Date Comments Penicillins Anaphylaxis,Chest tightness,Hives,Itching,Rash,Shortnes s of breath High 01/23/2022 Venom-Honey Bee Anaphylaxis,Chest tightness,Rash,Shortness of breath High 01/23/2022 Medications sertraline (ZOLOFT) 50 mg tablet Take 50 mg by mouth daily 10/24/2021 Active Active Problems Problem Noted Date Diagnosed Date Syncope and collapse 01/23/2022 Hyperlipidemia 01/23/2022 Tobacco dependence 01/23/2022 Family History Medical History Relation Name Comments liver cirrhosis Father Diabetes Mother Heart disease Mother Stroke Mother Hyperlipidemia Sister htn Sister Relation Name Status Comments Father Mother Sister Social History Tobacco Use Types Packs/Day Years Used Date Smoking Tobacco: Every Day Cigarettes Smokeless Tobacco: Current Chew Tobacco Cessation:Ready to Q uit: Not Asked; Counseling Given: Not Answered Personal Safety Answer Date Recorded Getting School Help Needed Not on file 05/15 Sex and Gender Information Value Date Recorded Sex Assigned at Not on file Legal Sex Male 7:36 PM TRANSPORTATION AGENT Gender Identity Not on file Sexual Orientation Not on file Obstetrics History Last Filed Vital Signs Vital Sign Reading Time Taken Comments Blood Pressure 122/90 01/23/2022 10:51 AM TRANSPORTATION AGENT Pulse 85 01/23/2022 10:51 AM TRANSPORTATION AGENT Temperature - - Respiratory Rate - - Oxygen Saturation 94% 01/23/2022 10:51 AM TRANSPORTATION AGENT Inhaled Oxygen Concentration - - Weight 91.6 kg (202 lb) 01/23/2022 10:51 AM TRANSPORTATION AGENT Height 182.9 cm (6') 01/23/2022 10:51 AM TRANSPORTATION AGENT Body Mass Index 27.4 01/23/2022 10:51 AM TRANSPORTATION AGENT Plan of Treatment Health Maintenance Due Date Last Done Comments Colon Cancer Screening-Colonoscopy 1969 Depression Screening 1969 Hepatitis C Screening 1969 Prostate Cancer Screening-PSA 1969 Pneumococcal vaccine <65 (1 of 2 - PCV) 08/01/1975 Hepatitis B Screening 08/01/1987 Regular Well Visit/Exam 18-64 08/01/1987 Zoster Vaccine (1 of 2) 08/01/2019 Covid-19 Vaccine (3 - season) 2023, 01/12/2021 Influenza Vaccine (#1) 2023 DTaP/Tdap/Td Vaccine (3 - Td or Tdap) 04/27/2030, 01/01/2019 Insurance [employer] OPEN ACCESS Care Teams Health Services Coordinator Relationship Specialty Start Date End Date Yael Odonnell DO PCP - General Family Medicine 01/15/22
--- OUTSIDE RECORDS SUMMARY | 2024-04-28 07:58 | XMS_ITS | Referral Summary ---
Author Organization [facility] [place] [address] Address [address] [place] [address] Care Team Providers Care Wastewater Treatment Engineer Name Role Phone Yael Odonnell DO Primary Care Provider [phone]- [phone] Allergies Active Allergy Reactions Criticality Noted Date Comments Penicillins Anaphylaxis,Chest tightness,Hives,Itching,Rash,Shortnes s of breath High 01/23/2022 Venom-Honey Bee Anaphylaxis,Chest tightness,Rash,Shortness of breath High 01/23/2022 Medications sertraline (ZOLOFT) 50 mg tablet Take 50 mg by mouth daily 10/24/2021 Active Active Problems Problem Noted Date Diagnosed Date Syncope and collapse 01/23/2022 Hyperlipidemia 01/23/2022 Tobacco dependence 01/23/2022 Social History Tobacco Use Types Packs/Day Years Used Date Smoking Tobacco: Every Day Cigarettes Smokeless Tobacco: Current Chew Tobacco Cessation:Ready to Q uit: Not Asked; Counseling Given: Not Answered Personal Safety Answer Date Recorded Getting School Help Needed Not on file 05/15 Sex and Gender Information Value Date Recorded Sex Assigned at Not on file Legal Sex Male 7:36 PM CUT OUT MACHINE OPERATOR Gender Identity Not on file Sexual Orientation Not on file Last Filed Vital Signs Vital Sign Reading Time Taken Comments Blood Pressure 122/90 01/23/2022 10:51 AM CUT OUT MACHINE OPERATOR Pulse 85 01/23/2022 10:51 AM CUT OUT MACHINE OPERATOR Temperature - - Respiratory Rate - - Oxygen Saturation 94% 01/23/2022 10:51 AM CUT OUT MACHINE OPERATOR Inhaled Oxygen Concentration - - Weight 91.6 kg (202 lb) 01/23/2022 10:51 AM CUT OUT MACHINE OPERATOR Height 182.9 cm (6') 01/23/2022 10:51 AM CUT OUT MACHINE OPERATOR Body Mass Index 27.4 01/23/2022 10:51 AM CUT OUT MACHINE OPERATOR Plan of Treatment Not on file [facility] Care Teams Wastewater Treatment Engineer Relationship Specialty Start Date End Date Yael Odonnell DO PCP - General Family Medicine 01/15/22
--- OUTSIDE RECORDS SUMMARY | 2024-04-28 07:58 | XMS_ITS | Continuity of Care Document ---
Author Organization [facility] Address [id number] [place] [address] [address] [facility] [address] [place] [address] Phone Care Team Providers Care Electric Spot Welder Name Role Phone Laura Carlin Unavailable Unavailable Procedures Procedure Date Office Consultation Advance Directives Directive Yes / No Effective Date File Name No Information Encounters Encounter Description Practice Location Reason(s) For Visit Diagnoses Date Provider Providers Copied on Encounter Office Consultation [facility], [id number] [place] [address] [address], [place], [place], [id number], [place] tel:[phone] [facility] [place] No Information 8 Raegan Sanchez. [address] [facility] , [address], [place], [address], [place]. tel:[phone] Referring Provider: Elke Cruz, [address] [facility] , [place], [address]. tel:[phone] Family History Family Member Type Diagnosis Age At Onset No Information Payers Payer name Insurance type Covered constitution party ID Authorcinthyaa riya(s) [facility] Commercial CI [id number] Social History Type Description Quantity Date Captured [...]
== END 2024-04-28 07:55 | disposition home or self-care (01) ==
PROVIDERS: PCP Family Medicine; Visit Provider Orthopaedic Surgery
DX: M43.02 Spondylolysis, cervical region (principal)
CPT/HCPCS: 72040

== ENCOUNTER 2024-05-17 15:46 | Outpatient (CLI) | payer BC, SELFPAY ==
--- NOTE | ~2024-05-17 | MR_ITS ---
EXAMINATION: MR shoulder LT wo con DATE: 05/17/2024 16:41 INDICATION: Left shoulder lesion TECHNIQUE: Magnetic resonance imaging (MRI) of the left shoulder was performed without intravenous co ntrast. Sequences included axial PD-weighted FS FSE, coronal oblique PD-weighted FS FSE, coronal obli que T2-weighted FS FSE, sagittal PD-weighted FS FSE, and sagittal T1-weighted SE. COMPARISON: None. FINDINGS: Coracoacromial arch: The acromion undersurface is curved in morphology (type II). The coracoacromial ligament is normal. M ild to moderate acromioclavicular osteoarthritis with small inferiorly directed osteophytes. Rotator cuff: Mild supraspinatus tendinopathy without discrete tear. The infraspinatus and teres minor tendons are normal. Mild. Subscapularis tendinopathy without tear. Normal rotator cuff muscle bulk and signal. Th ere is thickening of the coracohumeral and superior glenohumeral ligament components of the biceps pu lley sling at the rotator cuff interval there is also loss of the normal T1 fat signal collateral whi ch can be seen in the setting of adhesive capsulitis. Biceps tendon, glenoid labrum and glenohumeral cartilage: Long head of the biceps tendon is normal. Glenoid labrum is normal. Glenohumeral cartilage is normal. Fluid: Physiologic amount of fluid in the glenohumeral joint and biceps tendon sheath. No loose osteochondr al bodies. There is thickening of the joint capsule at the axillary recess which can also be seen in setting of adhesive capsulitis. No abnormal fluid in the subacromial/subdeltoid bursa to suggest burs itis. Bones: No fracture or pathologic marrow replacing process. Mild cystic change at the greater tuberosity. IMPRESSION: 1. Thickening of the biceps nelly sling which could represent scarring related to chronic partial te ar which also be seen in setting of adhesive capsulitis which is also suggested by thickening of the joint capsule at the axillary recess. Adhesive capsulitis is ultimately a clinical diagnosis. 2. Mild supraspinatus and subscapularis tendinopathy without discrete tear. 3. Mild to moderate acromioclavicular osteoarthritis. Reviewed, dictated and finalized at location B. CIPAL MILITARY ANALYST IMPRESSION: 1. Thickening of the biceps nelly sling which could represent scarring related to chronic partial tear which also be seen in setting of adhesive capsulitis w hich is also suggested by thickening of the joint capsule at the axillary reces s. Adhesive capsulitis is ultimately a clinical diagnosis. 2. Mild supraspinatus and subscapularis tendinopathy without discrete tear. 3. Mild to moderate acromioclavicular osteoarthritis.
--- OUTSIDE RECORDS SUMMARY | 2024-05-17 17:22 | XMS_ITS | Referral Summary ---
Author Organization [facility] [place] [address] Address [address] [place] [address] Care Team Providers Care Clinical Mental Health Counselor Name Role Phone Yael Odonnell DO Primary Care Provider [phone]- [phone] Allergies Active Allergy Reactions Criticality Noted Date [...] on file Legal Sex Male 7:36 PM SUMMER NANNY Gender Identity Not on file Sexual Orientation Not on file Last Filed Vital Signs Vital Sign Reading Time Taken Comments Blood Pressure 122/90 01/23/2022 10:51 AM SUMMER NANNY Pulse 85 01/23/2022 10:51 AM SUMMER NANNY Temperature - - Respiratory Rate - - Oxygen Saturation 94% 01/23/2022 10:51 AM SUMMER NANNY Inhaled Oxygen Concentration - - Weight 91.6 kg (202 lb) 01/23/2022 10:51 AM SUMMER NANNY Height 182.9 cm (6') 01/23/2022 10:51 AM SUMMER NANNY Body Mass Index 27.4 01/23/2022 10:51 AM SUMMER NANNY Plan of Treatment Not on file [facility] Care Teams Clinical Mental Health Counselor Relationship Specialty Start Date End Date Yael Odonnell DO PCP - General Family Medicine 01/15/22
--- OUTSIDE RECORDS SUMMARY | 2024-05-17 17:22 | XMS_ITS | Continuity of Care Document ---
Author Organization [facility] Address [id number] [place] [address] [address] [place] [address] Phone Care Team Providers Care Floor Covering Contractor Name Role Phone Laura Carlin Unavailable Unavailable Procedures Procedure Date Office Consultation Advance Directives Directive Yes / No Effective Date File Name No Information Encounters Encounter Description Practice Location Reason(s) For Visit Diagnoses Date Provider Providers Copied on Encounter Office Consultation [facility], [id number] [place] [address] [address], [place], [place], [id number], [place] tel:[phone] [facility] [place] No Information 8 Raegan Sanchez. [address] [facility] , [address], [place], [address], [place]. tel:[phone] Referring Provider: Elke Cruz, [address] [facility] , [place], [address]. tel:[phone] Family History Family Member Type Diagnosis Age At Onset No Information Payers Payer name Insurance type Covered democrat ID Authorcinthyaa riya(s) [facility] Commercial CI [id number] Social History Type Description Quantity Date Captured [...]
--- OUTSIDE RECORDS SUMMARY | 2024-05-17 17:22 | XMS_ITS | Clinical Summary ---
Author Organization [facility] [place] [address] Address [address] [place] [address] Care Team Providers Care Efficiency Expert Name Role Phone Yael Odonnell DO Primary Care Provider [phone]- [phone] Allergies Active Allergy Reactions Criticality Noted Date [...] on file Legal Sex Male 7:36 PM ROTARY CUTTER Gender Identity Not on file Sexual Orientation Not on file Obstetrics History Last Filed Vital Signs Vital Sign Reading Time Taken Comments Blood Pressure 122/90 01/23/2022 10:51 AM ROTARY CUTTER Pulse 85 01/23/2022 10:51 AM ROTARY CUTTER Temperature - - Respiratory Rate - - Oxygen Saturation 94% 01/23/2022 10:51 AM ROTARY CUTTER Inhaled Oxygen Concentration - - Weight 91.6 kg (202 lb) 01/23/2022 10:51 AM ROTARY CUTTER Height 182.9 cm (6') 01/23/2022 10:51 AM ROTARY CUTTER Body Mass Index 27.4 01/23/2022 10:51 AM ROTARY CUTTER Plan of Treatment Health Maintenance Due Date Last Done Comments Colon Cancer Screening-Colonoscopy 1969 Depression Screening 1969 Hepatitis C Screening 1969 Prostate Cancer Screening-PSA 1969 Hepatitis B Screening 08/01/1987 Regular Well Visit/Exam 18-64 08/01/1987 Pneumococcal vaccine <65 (1 of 2 - PCV) 1988 Zoster Vaccine (1 of 2) 08/01/2019 Covid-19 Vaccine (3 - season) 2023, 01/12/2021 Influenza Vaccine (#1) 2023 DTaP/Tdap/Td Vaccine (3 - Td or Tdap) 04/27/2030, 01/01/2019 Insurance [employer] OPEN ACCESS Care Teams Efficiency Expert Relationship Specialty Start Date End Date Yael Odonnell DO PCP - General Family Medicine 01/15/22
== END 2024-05-17 15:47 | disposition home or self-care (01) ==
PROVIDERS: PCP Family Medicine; Visit Provider Orthopaedic Surgery
DX: M25.812 Other specified joint disorders, left shoulder (principal); M67.814 Other specified disorders of tendon, left shoulder; M19.012 Primary osteoarthritis, left shoulder
CPT/HCPCS: 73221

== ENCOUNTER 2024-12-31 08:54 | Outpatient (CLI) | payer BC, SELFPAY ==
--- OUTSIDE RECORDS SUMMARY | 2008-02-23 11:00 | XMS_ITS | Continuity of Care Document ---
Author Organization [facility] Address [id number] [place] [address] [address] [place] [address] Phone Care Team Providers Care Associate Professor Of Theology Name Role Phone Laura Carlin Unavailable Unavailable Procedures Procedure Date Office Consultation Advance Directives Directive Yes / No Effective Date File Name No Information Encounters Encounter Description Practice Location Reason(s) For Visit Diagnoses Date Provider Providers Copied on Encounter Office Consultation [facility], [id number] [place] [address] [address], [place], [place], [id number], [place] tel:[phone] [facility] No Information 8 Raegan Sanchez. [address] [facility] , [address], [place], [address], [place]. tel:[phone] Referring Provider: Elke Cruz, [address] [facility] , [place], [address]. tel:[phone] Family History Family Member Type Diagnosis Age At Onset No Information Payers Payer name Insurance type Covered libertarian ID Authorcinthyaa riya(s) [facility] Commercial CI [id number] Social History Type Description Quantity Date Captured Comments Sex Male Smoking Status No Information Chief Complaint And Reason For Visit No Information Reason For Referral Reason For Referral No Information History Of Present Illness Encounter Date Complaint History Of Prese nt Illness No Information Functional Status Date Functional Assessmen t No Information Instructions Date Instruction Additional Infor mation No Information Assessments Type Assessment Date No Information Patient Care Teams Name Effective Dates (start - stop) Status Members No Information
--- NOTE | ~2024-12-31 | CT_ITS ---
EXAMINATION:CT lung screening DATE: 12/31/2024 09:18 INDICATION: Personal history of nicotine dependence. TECHNIQUE: Computed tomography (CT) of the chest was performed without intravenous contrast. Automated exposure control and iterative reconstruction technique were employed. The dose-length product (DLP) was 214.71 mGy-cm. COMPARISON: Chest CT 03/03/2023 FINDINGS: The lungs demonstrate mild atelectasis on the left. There is a 4 mm groundglass nodule in the lingula. There is a 2 mm nodule in right lower lobe. No pleural effusion. The heart size is normal. No pericardial effusion. There are old healed left rib fractures. There is moderate cervical and thoracic spondylosis. IMPRESSION: 1. Lung-RADS category 2: Benign appearance or behavior. Continue annual screening with noncontrast low-dose chest CT in 12 months. Reviewed, dictated and finalized at location E. IMPRESSION: 1. Lung-RADS category 2: Benign appearance or behavior. Continue annual screeni ng with noncontrast low-dose chest CT in 12 months.
--- OUTSIDE RECORDS SUMMARY | 2024-12-31 08:56 | XMS_ITS | Clinical Summary ---
Author Organization [facility] [place] [address] Address [address] [place] [address] Care Team Providers Care Type Proof Reproducer Name Role Phone Yael Odonnell DO Primary Care Provider [phone]- [phone] Allergies Active Allergy Reactions Criticality Noted Date [...] on file Legal Sex Male 7:36 PM OIM ARCHITECT Gender Identity Not on file Sexual Orientation Not on file Obstetrics History Last Filed Vital Signs Vital Sign Reading Time Taken Comments Blood Pressure 122/90 01/23/2022 10:51 AM OIM ARCHITECT Pulse 85 01/23/2022 10:51 AM OIM ARCHITECT Temperature - - Respiratory Rate - - Oxygen Saturation 94% 01/23/2022 10:51 AM OIM ARCHITECT Inhaled Oxygen Concentration - - Weight 91.6 kg (202 lb) 01/23/2022 10:51 AM OIM ARCHITECT Height 182.9 cm (6') 01/23/2022 10:51 AM OIM ARCHITECT Body Mass Index 27.4 01/23/2022 10:51 AM OIM ARCHITECT Plan of Treatment Health Maintenance Due Date Last Done Comments Colon Cancer Screening-Colonoscopy 1969 Depression Screening 1969 Hepatitis C Screening 1969 Prostate Cancer Screening-PSA 1969 Hepatitis B Screening 08/01/1987 Regular Well Visit/Exam 18-64 08/01/1987 Pneumococcal vaccine <65 (1 of 2 - PCV) 1988 Zoster Vaccine (1 of 2) 08/01/2019 Covid-19 Vaccine (3 - season) 2024, 01/12/2021 Influenza Vaccine (#1) 2024 DTaP/Tdap/Td Vaccine (3 - Td or Tdap) 04/27/2030, 01/01/2019 Insurance [employer] OPEN ACCESS Care Teams Type Proof Reproducer Relationship Specialty Start Date End Date Yael Odonnell DO PCP - General Family Medicine 01/15/22
== END 2024-12-31 08:55 | disposition home or self-care (01) ==
PROVIDERS: PCP Family Medicine; Visit Provider Nurse Practitioner
DX: Z12.2 Encounter for screening for malignant neoplasm of respiratory organs (principal); Z87.891 Personal history of nicotine dependence
CPT/HCPCS: 71271